=== PATIENT | male | born 1980 ===

== ENCOUNTER 2018-04-01 08:26 | Inpatient (IN) | payer OTHER ==
[2018-04-01 08:33] VITALS: BMI 27.1
[2018-04-01] MEDS ORDERED: Sodium Chloride 0.9% 1,000 ML IV STA (08:56)
[2018-04-01 09:29] LABS: BASO # 0.1 K/uL (0.0-0.2); BASO % 0.8 % (0.0-2.0); EOS # 0.2 K/uL (0.0-0.7); EOS % 2.3 % (0.0-4.0); HEMOGLOBIN 14.7 g/dL (12.0-18.0); LYMPH # 2.3 K/uL (1.0-4.3); LYMPH % 27.3 % (20.0-40.0); MEAN CELL VOLUME 87.6 fl (80.0-94.0); MEAN CORPUSCULAR HEMOGLOBIN 29.9 pg (27.0-31.0); MEAN CORPUSCULAR HGB CONC 34.1 g/dL (33.0-37.0); MEAN PLATELET VOLUME 8.5 fl (7.2-11.7); MONO # 0.5 K/uL (0.0-0.8); MONO % 5.7 % (0.0-10.0); NEUT # 5.4 K/uL (1.8-7.0); NEUT % 63.9 % (50.0-75.0); NRBC % 0.1 % (0.0-0.0); RBC 4.93 Mil/uL (4.40-5.90); RED CELL DISTRIBUTION WIDTH 13.6 % (11.5-14.5); WHITE BLOOD COUNT 8.4 K/uL (4.8-10.8)
[2018-04-01 09:41] LABS: ALB/GLOB RATIO 1.3 (1.0-2.1); ALBUMIN 4.5 g/dL (3.5-5.0); ALT/SGPT 99 U/L (21-72); AST/SGOT 55 U/L (17-59); BLOOD UREA NITROGEN 19 mg/dl (9-20); CALCIUM 9.5 mg/dL (8.4-10.2); GFR NON-AFRICAN AMERICAN > 60; LIPASE 106 U/L (23-300)
--- NOTE | 2018-04-01 09:51 | ED PDOC ---
HPI: Abdomen Time Seen by Provider: 04/01/18 08:50 Chief Complaint (Nursing): Abdominal Pain Chief Complaint (Provider): abdominal pain History Per: Patient History/Exam Limitations: no limitations Onset/Duration Of Symptoms: Days (x3), Worse Since (today) Current Symptoms Are (Timing): Still Present Associated Symptoms: Nausea, Vomiting. denies: Fever, Chills, Diarrhea Additional Complaint(s): New Gaitan is a 37 year old male, with no significant past medical history, who presents to the emergency department complaining of an intermittent abdominal pain onset for x3 days but worst today. Patient states symptoms are associated with x1 vomiting episode and nausea. Patient was seen by PMD yesterday and was prescribed Omeprazole with no relief. Patient reports similar symptoms in the past. He denies any fever, chills, diarrhea or constipation. No further medical complaints. PMD: Yesica Romero Past Medical History Reviewed: Historical Data, Nursing Documentation, Vital Signs Vital Signs: Last Vital Signs Temp 97.5 F L 04/01/18 08:29 Pulse 56 L 04/01/18 08:29 Resp 22 04/01/18 08:29 BP 139/78 04/01/18 08:29 Pulse Ox 100 04/01/18 08:29 - Medical History PMH: No Chronic Diseases - Surgical History Surgical History: No Surg Hx - Family History Family History: States: Unknown Family Hx - Allergies Allergies/Adverse Reactions: Allergies Allergy/AdvReac Type Severity Reaction Status Date / Time No Known Allergies Allergy Verified 04/01/18 08:55 Review of Systems ROS Statement: Except As Marked, All Systems Reviewed And Found Negative Constitutional: Negative for: Fever, Chills Gastrointestinal: Positive for: Nausea, Vomiting, Abdominal Pain. Negative for: Diarrhea, Constipation Physical Exam - Reviewed Nursing Documentation Reviewed: Yes Vital Signs Reviewed: Yes - Physical Exam Appears: Positive for: No Acute Distress Head Exam: Positive for: ATRAUMATIC, NORMOCEPHALIC Skin: Positive for: Normal Color, Warm, Dry Eye Exam: Positive for: Normal appearance, EOMI, PERRL Neck: Positive for: Painless ROM Cardiovascular/Chest: Positive for: Regular Rate, Rhythm. Negative for: Murmur Respiratory: Positive for: Normal Breath Sounds. Negative for: Respiratory Distress Gastrointestinal/Abdominal: Positive for: Tenderness (epigastric). Negative for: Guarding, Rebound Back: Positive for: Normal Inspection. Negative for: L CVA Tenderness, R CVA Tenderness, Vertebral Tenderness Extremity: Positive for: Normal ROM (upper and lower extremities). Negative for: Deformity, Swelling Neurologic/Psych: Positive for: Alert, Oriented, Gait (steady) - Laboratory Results Result Diagrams: 04/01/18 09:18 04/01/18 09:18 - ECG O2 Sat by Pulse Oximetry: 100 (RA) Pulse Ox Interpretation: Normal Medical Decision Making Medical Decision Making: Time: 08:50 Initial Impression: abdominal pain Initial Plan: --Urine dipstick --Pepcid 20 mg IVP --Sodium Chloride 1,000 ml IV 1,000 mls/hr --Zofran Inj 4 mg IV --Abdomen Limited (GB Included) [US] --Reevaluation Accession No. : [id number] Patient Name / ID : JAIRO BROWN / [id number] Exam Date : 04/01/2018 10:37:19 ( Approved ) Study Comment : Sex / Age : M / 37Y Creator : Martin Liu MD Dictator : Martin Liu MD Trimming Caser : Paste Mixer Liquid : Martin Liu MD Approver2 : Report Date : 04/01/2018 12:02:09 My Comment : Date of service: 04/01/2018 HISTORY: Epigastric pain, vomiting COMPARISON: None. TECHNIQUE: Sonographic evaluation of the right upper quadrant of the abdomen. FINDINGS: LIVER: Measures 17.4 cm in length. Normal echogenicity of the liver parenchyma. No mass. No intrahepatic bile duct dilatation. Normal hepatopetal portal venous flow noted GALLBLADDER: Extensive cholelithiasis. Mild mural thickening up to 4 mm. Negative sonographic Sherman sign. Equivocal findings for cholecystitis. COMMON BILE DUCT: Measures 5 mm. No stones. No dilatation. PANCREAS: Unremarkable. No pancreatic ductal dilatation. RIGHT KIDNEY: Measures 10.6 cm in length. Normal echogenicity. No calculus, mass, or hydronephrosis. AORTA: No aneurysmal dilatation. IVC: Unremarkable. OTHER FINDINGS: None . IMPRESSION: Cholelithiasis with mild mural thickening and negative sonographic Sherman sign. Equivocal findings for cholecystitis. No pericholecystic fluid. No evidence of acute pancreatitis. No additional abnormality. 13:05 Case discussed with vice president of development. Scribe Attestation: Documented by Winston Lugo, acting as a scribe for Melba Razo MD. Provider Scribe Attestation: All medical record entries made by the Scribe were at my direction and personally dictated by me. I have reviewed the chart and agree that the record accurately reflects my personal performance of the history, physical exam, medical decision making, and the department course for this patient. I have also personally directed, reviewed, and agree with the discharge instructions and disposition. Disposition - Disposition Forms: Antavo ([place]itan)
[2018-04-01] MEDS ORDERED: Alum-Mag Hydrox-Simethicone Susp (30 mL) PO STA (11:18)
[2018-04-01] MEDS ORDERED: Atrop/Hyos/Scop/PhenoB Elixir PO STA (11:19)
[2018-04-01] MEDS ORDERED: Alum-Mag Hydrox-Simethicone Susp (30 mL) ONE (11:31)
--- NOTE | 2018-04-01 12:04 | US ---
Date of service: 04/01/2018 HISTORY: Epigastric pain, vomiting COMPARISON: None. TECHNIQUE: Sonographic evaluation of the right upper quadrant of the abdomen. FINDINGS: LIVER: Measures 17.4 cm in length. Normal echogenicity of the liver parenchyma. No mass. No intrahepatic bile duct dilatation. Normal hepatopetal portal venous flow noted GALLBLADDER: Extensive cholelithiasis. Mild mural thickening up to 4 mm. Negative sonographic Sherman sign. Equivocal findings for cholecystitis. COMMON BILE DUCT: Measures 5 mm. No stones. No dilatation. PANCREAS: Unremarkable. No pancreatic ductal dilatation. RIGHT KIDNEY: Measures 10.6 cm in length. Normal echogenicity. No calculus, mass, or hydronephrosis. AORTA: No aneurysmal dilatation. IVC: Unremarkable. OTHER FINDINGS: None . IMPRESSION: Cholelithiasis with mild mural thickening and negative sonographic Sherman sign. Equivocal findings for cholecystitis. No pericholecystic fluid. No evidence of acute pancreatitis. No additional abnormality.
--- NOTE | 2018-04-01 13:52 | CP.PCM.HP ---
<Mak Machado - Last Filed: 04/01/18 14:46> History of Present Illness - History of Present Illness History of Present Illness: General Surgery H&P note for Dr. Solano Reason for consult: Abdominal pain, nausea/vomiting 37 M with no significant PMH presents to [facility] for complaint of epigastric abdominal pain. Patient was seen and evaluated in the ED. Patient states that pain began 3 days ago while at home. He reports sudden onset a couple hours after a meal. Patient states that this is the third time he has experienced pain like this. The first time was approximately 5 years ago and the second was 2 years ago. Both times were associated with meals. Patient also reports 2 episodes of nausea/vomiting this morning. He rates pain as moderate to severe. He describes pain as constant and sharp located in the epigastric region with radiaiton to RUQ. Eating/drinking exacerbates symptoms while nothing alleviates it. Denies fever/chills, chest pain, SOB, palpitations, diarrhea, constipation, urinary symptoms. 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 Present on Admission - Present on Admission Any Indicators Present on Admission: No Review of Systems - Review of Systems All systems: reviewed and no additional remarkable complaints except (as per HPI) Past Patient History - Past Social History Smoking Status: Light Smoker < 10 Cigarettes Daily - PSYCHIATRIC Hx Substance Use: No - SURGICAL HISTORY Hx Surgeries: No - ANESTHESIA Hx Anesthesia: No Meds Allergies/Adverse Reactions: Allergies Allergy/AdvReac Type Severity Reaction Status Date / Time No Known Allergies Allergy Verified 04/01/18 08:55 Physical Exam - Constitutional Appears: Well, Non-toxic, No Acute Distress - Head Exam Head Exam: ATRAUMATIC, NORMOCEPHALIC - Eye Exam Eye Exam: EOMI, Normal appearance Pupil Exam: PERRL - ENT Exam ENT Exam: Mucous Membranes Moist - Respiratory Exam Respiratory Exam: NORMAL BREATHING PATTERN - Cardiovascular Exam Cardiovascular Exam: REGULAR RHYTHM - GI/Abdominal Exam GI & Abdominal Exam: Soft, Tenderness (RUQ/Epigastric). absent: Distended, Firm, Guarding, Rebound, Rigid - Extremities Exam Extremities exam: Positive for: normal capillary refill, pedal pulses present. Negative for: calf tenderness - Back Exam Back exam: absent: CVA tenderness (L), CVA tenderness (R) - Neurological Exam Neurological exam: Alert, CN II-XII Intact, Oriented x3 - Psychiatric Exam Psychiatric exam: Normal Affect, Normal Mood - Skin Skin Exam: Dry, Intact, Normal Color, Warm Results - Vital Signs Recent Vital Signs: Last Vital Signs Temp 97.5 F L 04/01/18 08:29 Pulse 56 L 04/01/18 08:29 Resp 22 04/01/18 08:29 BP 139/78 04/01/18 08:29 Pulse Ox 100 04/01/18 13:14 - Labs Result Diagrams: 04/01/18 09:18 04/01/18 09:18 Labs: Laboratory Results - last 24 hr 04/01/18 04/01/18 09:18 09:18 WBC 8.4 RBC 4.93 Hgb 14.7 Hct 43.2 MCV 87.6 MCH 29.9 MCHC 34.1 RDW 13.6 Plt Count 257 MPV 8.5 Neut % (Auto) 63.9 Lymph % (Auto) 27.3 [place] % (Auto) 5.7 Eos % (Auto) 2.3 Baso % (Auto) 0.8 Neut # (Auto) 5.4 Lymph # (Auto) 2.3 [place] # (Auto) 0.5 Eos # (Auto) 0.2 Baso # (Auto) 0.1 Sodium 142 Potassium 4.3 Chloride 106 Carbon Dioxide 27 Anion Gap 13 BUN 19 Creatinine 0.9 Est GFR ( Amer) > 60 Est GFR (Non-Af Amer) > 60 Random Glucose 113 H Calcium 9.5 Total Bilirubin 0.5 AST 55 ALT 99 H Alkaline Phosphatase 62 Total Protein 7.8 Albumin 4.5 Globulin 3.4 Albumin/Globulin Ratio 1.3 Lipase 106 Assessment & Plan - Assessment and Plan (Free Text) Assessment: 37 M with abdominal pain and cholelithiasis Plan: -NPO -IV fluids -IV antibiotics -Analgesics/Anti-emetics PRN -I's & O's -Plan for OR Thursday morning -Discussed with Dr. Russ Machado PGY2 - Date & Time Date: 04/01/18 Time: 13:00 <Fatuma Solano - Last Filed: 04/02/18 00:04> Results - Vital Signs Recent Vital Signs: Last Vital Signs Temp 97.9 F 04/01/18 16:05 Pulse 47 L 04/01/18 18:30 Resp 18 04/01/18 16:05 BP 138/80 04/01/18 16:05 Pulse Ox 99 04/01/18 16:05 - Labs Result Diagrams: 04/01/18 09:18 04/01/18 09:18 Labs: Laboratory Results - last 24 hr 04/01/18 04/01/18 09:18 09:18 WBC 8.4 RBC 4.93 Hgb 14.7 Hct 43.2 MCV 87.6 MCH 29.9 MCHC 34.1 RDW 13.6 Plt Count 257 MPV 8.5 Neut % (Auto) 63.9 Lymph % (Auto) 27.3 [place] % (Auto) 5.7 Eos % (Auto) 2.3 Baso % (Auto) 0.8 Neut # (Auto) 5.4 Lymph # (Auto) 2.3 [place] # (Auto) 0.5 Eos # (Auto) 0.2 Baso # (Auto) 0.1 Sodium 142 Potassium 4.3 Chloride 106 Carbon Dioxide 27 Anion Gap 13 BUN 19 Creatinine 0.9 Est GFR ( Amer) > 60 Est GFR (Non-Af Amer) > 60 Random Glucose 113 H Calcium 9.5 Total Bilirubin 0.5 AST 55 ALT 99 H Alkaline Phosphatase 62 Total Protein 7.8 Albumin 4.5 Globulin 3.4 Albumin/Globulin Ratio 1.3 Lipase 106 Assessment & Plan - Assessment and Plan (Free Text) Plan: I personally saw and examined the patient with the resident staff and agree with the above assessment and plan. I personally reviewed the available diagnostic images and imaging reports. US gallstones confirmed. Tenderness on exam. NPO, IVF. Zosyn. 37 Year old male with recurrent symptomatic cholelithiasis. I recommend he undergo a laparoscopic cholecystectomy. We discussed the risks and benefits of the operation including, but not limited to bleeding, infection, bowel injury, bile leak, bile duct injury, and VTE. All the patients questions were answered. He/she understands these risks and would like to proceed with the above. Informed consent was signed. Scheduled for Thursday am.
[2018-04-01] MEDS: Lactated Ringer's 1,000 ML IV SCH ×2 (16:09→23:27)
[2018-04-01] MEDS: Piperacillin/Tazobact 3.375 GM in Sodium Chloride 0.9% 100 ML IVPB SCH ×2 (16:09→21:45)
[2018-04-01] MEDS ORDERED: Pneumococcal 23-Valent Vaccine IM ONE (17:00)
[2018-04-01] MEDS ORDERED: Influenza Vaccine (5 YR UP)/PF 60 MCG/0.5 ML SYR IM ONE (17:00)
[2018-04-02] MEDS: Piperacillin/Tazobact 3.375 GM in Sodium Chloride 0.9% 100 ML IVPB SCH ×4 (03:35→23:02)
[2018-04-02 06:40] LABS: BASO % 0.2 % (0.0-2.0); EOS # 0.1 K/uL (0.0-0.7); EOS % 0.9 % (0.0-4.0); LYMPH % 16.8 % (20.0-40.0); MEAN CELL VOLUME 86.6 fl (80.0-94.0); MEAN CORPUSCULAR HEMOGLOBIN 29.6 pg (27.0-31.0); MEAN CORPUSCULAR HGB CONC 34.2 g/dL (33.0-37.0); MEAN PLATELET VOLUME 8.6 fl (7.2-11.7); MONO # 0.9 K/uL (0.0-0.8); MONO % 7.4 % (0.0-10.0); NEUT # 9.1 K/uL (1.8-7.0); NEUT % 74.7 % (50.0-75.0); NRBC % 0.1 % (0.0-0.0); RBC 5.07 Mil/uL (4.40-5.90); RED CELL DISTRIBUTION WIDTH 13.4 % (11.5-14.5); WHITE BLOOD COUNT 12.2 K/uL (4.8-10.8)
[2018-04-02 06:48] LABS: INR 1.2; PROTHROMBIN TIME 12.9 Seconds (9.8-13.1)
[2018-04-02 06:50] LABS: PARTIAL THROMBOPLASTIN TIME 33.9 Seconds (25.6-37.1)
[2018-04-02 07:06] LABS: ALB/GLOB RATIO 1.3 (1.0-2.1); ALBUMIN 4.2 g/dL (3.5-5.0); ALT/SGPT 97 U/L (21-72); AST/SGOT 67 U/L (17-59); BLOOD UREA NITROGEN 11 mg/dl (9-20); CALCIUM 9.1 mg/dL (8.4-10.2); GFR NON-AFRICAN AMERICAN > 60
--- NOTE | 2018-04-02 08:40 | CARD ---
APPROVED REPORT Date of service: 04/01/2018 EKG Measurement Heart [id number] <Conclusion> Sinus bradycardia Otherwise normal ECG
[2018-04-02] MEDS ORDERED: Propofol 10 mg/ml Inj (20 ML) ONE (10:37)
[2018-04-02] MEDS ORDERED: Midazolam 2 MG/2 ML VIAL ONE (10:37)
[2018-04-02] MEDS ORDERED: Succinylcholine 200 mg/10 ml Inj IV ONE (10:38)
[2018-04-02] MEDS ORDERED: Neostigmine 1:1000 (1 mg/ml) Inj ONE (10:38)
[2018-04-02] MEDS ORDERED: Lidocaine 1% 5ml Abboject ONE (10:38)
[2018-04-02] MEDS ORDERED: Lidocaine 4% (Laryng-O-Jet) Kit MM ONE (10:38)
[2018-04-02] MEDS ORDERED: Rocuronium 10 mg/ml (5 ml) ONE (10:38)
[2018-04-02] MEDS ORDERED: Lactated Ringer's 1,000 ML IV ONE (10:50)
[2018-04-02] MEDS ORDERED: Bupivacaine 0.25% Inj(30mL) INFIL ONE ×2 (11:13)
[2018-04-02] MEDS ORDERED: Lidocaine 2% Inj (20ml) INFIL ONE ×2 (11:13)
--- NOTE | 2018-04-02 12:52 | PCM.SURG1 ---
Surgeon's Initial Post Op Note - Surgeon's Notes Surgeon: Dr. Solano Chief Clerk: [place] PGY2 Type of Anesthesia: General Endo, Local Anesthesia Administered By: Dr. Mtz Pre-Operative Diagnosis: Acute cholecystitis Operative Findings: Acute cholecystitis Post-Operative Diagnosis: Acute cholecystitis Operation Performed: Laparoscopic Cholecystectomy Specimen/Specimens Removed: Gallblader with stones Estimated Blood Loss: EBL {In ML}: 25 Blood Products Given: N/A Drains Used: No Drains Post-Op Condition: Good Date of Surgery/Procedure: 04/02/18 Time of Surgery/Procedure: 12:52
[2018-04-02] MEDS ORDERED: Oxycodone/Acetaminophen 5/325 mg Tab PO PRN (12:53)
[2018-04-02] MEDS ORDERED: Lactated Ringer's 1,000 ML IV SCH (13:00)
[2018-04-02] MEDS: Lactated Ringer's 1,000 ML IV SCH (23:30)
[2018-04-03 00:09] VITALS: RESP 19
[2018-04-03] MEDS: Piperacillin/Tazobact 3.375 GM in Sodium Chloride 0.9% 100 ML IVPB SCH ×3 (05:16→09:27)
[2018-04-03] MEDS: Lactated Ringer's 1,000 ML IV SCH (06:00)
[2018-04-03 07:40] VITALS: BP 113/75; PULSE 65; TEMP 97.6; O2SAT 96
--- NOTE | 2018-04-03 09:29 | CP.PCM.DIS ---
Provider - Provider Date of Admission: 04/01/18 13:31 Attending physician: Fatuma Solano MD Consults: none Time Spent in preparation of Discharge (in minutes): 30 Hospital Course - Lab Results Lab Results: Most Recent Lab Values WBC 12.2 K/uL (4.8-10.8) H 04/02/18 06:05 RBC 5.07 Mil/uL (4.40-5.90) 04/02/18 06:05 Hgb 15.0 g/dL (12.0-18.0) 04/02/18 06:05 Hct 43.9 % (35.0-51.0) 04/02/18 06:05 MCV 86.6 fl (80.0-94.0) 04/02/18 06:05 MCH 29.6 pg (27.0-31.0) 04/02/18 06:05 MCHC 34.2 g/dL (33.0-37.0) 04/02/18 06:05 RDW 13.4 % (11.5-14.5) 04/02/18 06:05 Plt Count 264 K/uL (130-400) 04/02/18 06:05 MPV 8.6 fl (7.2-11.7) 04/02/18 06:05 Neut % (Auto) 74.7 % (50.0-75.0) 04/02/18 06:05 Lymph % (Auto) 16.8 % (20.0-40.0) L 04/02/18 06:05 [place] % (Auto) 7.4 % (0.0-10.0) 04/02/18 06:05 Eos % (Auto) 0.9 % (0.0-4.0) 04/02/18 06:05 Baso % (Auto) 0.2 % (0.0-2.0) 04/02/18 06:05 Neut # (Auto) 9.1 K/uL (1.8-7.0) H 04/02/18 06:05 Lymph # (Auto) 2.0 K/uL (1.0-4.3) 04/02/18 06:05 [place] # (Auto) 0.9 K/uL (0.0-0.8) H 04/02/18 06:05 Eos # (Auto) 0.1 K/uL (0.0-0.7) 04/02/18 06:05 Baso # (Auto) 0.0 K/uL (0.0-0.2) 04/02/18 06:05 PT 12.9 Seconds (9.8-13.1) 04/02/18 06:05 INR 1.2 04/02/18 06:05 APTT 33.9 Seconds (25.6-37.1) 04/02/18 06:05 Sodium 137 mmol/l (132-148) 04/02/18 06:05 Potassium 4.0 MMOL/L (3.6-5.0) 04/02/18 06:05 Chloride 102 mmol/L (98-107) 04/02/18 06:05 Carbon Dioxide 29 mmol/L (22-30) 04/02/18 06:05 Anion Gap 10 (10-20) 04/02/18 06:05 BUN 11 mg/dl (9-20) 04/02/18 06:05 Creatinine 0.9 mg/dl (0.8-1.5) 04/02/18 06:05 Est GFR ( Amer) > 60 04/02/18 06:05 Est GFR (Non-Af Amer) > 60 04/02/18 06:05 Random Glucose 109 mg/dL (75-110) 04/02/18 06:05 Calcium 9.1 mg/dL (8.4-10.2) 04/02/18 06:05 Total Bilirubin 1.7 mg/dl (0.2-1.3) H 04/02/18 06:05 AST 67 U/L (17-59) H D 04/02/18 06:05 ALT 97 U/L (21-72) H 04/02/18 06:05 Alkaline Phosphatase 55 U/L (38-126) 04/02/18 06:05 Total Protein 7.5 G/DL (6.3-8.2) 04/02/18 06:05 Albumin 4.2 g/dL (3.5-5.0) 04/02/18 06:05 Globulin 3.3 gm/dL (2.2-3.9) 04/02/18 06:05 Albumin/Globulin Ratio 1.3 (1.0-2.1) 04/02/18 06:05 Lipase 106 U/L (23-300) 04/01/18 09:18 - Hospital Course Hospital Course: 37yo M with no significant PMH presented to [facility] ED for complaint of epigastric abdominal pain radiating to the RUQ for 3 days associated with 2 episodes of N/V. Onset of pain was a couple hours after a meal. Patient stated that this was the third time he had experienced pain like this. The first time was approximately 5 years ago and the second was 2 years ago. Both times were associated with meals. Pt was tender in RUQ on physical exam. US showed extensive cholelithiasis, mild mural thickening up to 4mm, no pericholecystic fluid. On 04/02, he was taken to OR for laparoscopic cholecystectomy. On POD#1, he was tolerating diet, pain well controlled, ambulating, and requesting to go home. He was discharged home with prescriptions for Ultram, Ibuprofen, Colace and instructions to follow up with Dr. Solano in his office. Discharge Exam - Head Exam Head Exam: ATRAUMATIC, NORMOCEPHALIC - Eye Exam Eye Exam: EOMI, Normal appearance - Respiratory Exam Respiratory Exam: NORMAL BREATHING PATTERN. absent: Respiratory Distress - Cardiovascular Exam Cardiovascular Exam: +S1, +S2 - GI/Abdominal Exam GI & Abdominal Exam: Soft, Tenderness (mild joanna-incisional tenderness around laparoscopic incision sites). absent: Distended, Firm, Guarding, Rebound, Rigid Additional comments: Dermabond in place over laparoscopic incision sites - Neurological Exam Neurological exam: Alert, CN II-XII Intact, Oriented x3 - Psychiatric Exam Psychiatric exam: Normal Affect, Normal Mood - Skin Skin Exam: Dry, Normal Color, Warm Discharge Plan - Follow Up Plan Condition: GOOD Disposition: HOME/ ROUTINE Patient education suggested?: Yes Instructions: Cholecystectomy, Laparoscopic Surgery, Cholecystitis (DC), Cholecystitis (GEN) Additional Instructions: Prescription given for Tramadol, Ibuprofen, Colace Follow up with Dr. Solano in approximately 2 weeks, call to make appointment See DC instruction sheet for additional instructions Referrals: Fatuma Solano MD [Staff Provider] -
--- NOTE | 2018-04-03 18:19 | PCM.OP ---
Operative Report - Operative Report Date of Surgery/Procedure: 04/02/18 Time of Surgery/Procedure: 11:00 Surgeon: Fatuma Solano MD [employer] Supervisor: Mak Peacock DO (PGY2 resident) Anesthesia/Sedation: General endotracheal; 1% lidocaine + 0.25% Marcaine mix local anesthesia Pre-Operative Diagnosis: Acute calculus cholecystitis. Overweight. BMI 27 Post-Operative Diagnosis: Acute on chronic calculus cholecystitis. Overweight. BMI 27 Indication for Surgery: This is a 37-year-old male presented to ED with RUQ pain due to symptomatic cholelithiasis and acute cholecystitis on RUQ US, confirming stones and inflammation. Third attack and hospital visit in last 2 years. Details of HPI in clinical chart. Taken to the operating room for laparoscopic cholecystectomy. Patient understands the risks and benefits of the procedure as documented in the clinic chart but specifically risk of cystic duct leak and common bile duct injury, need for open surgery and has consented to the procedure. Operative Findings: Dilated, Fluid filled gallbladder with multple stones. Clips in place on cystic duct and cystic artery at end of case without evidence of bleeding or bile leak. Procedure/Operation Description: PROCEDURES PERFORMED: 1) Laparoscopic Cholecystectomy. DESCRIPTION OF PROCEDURE: The patient was given a preoperative dose of Zosyn 20 minutes before the incision. SCD boots were placed for DVT prophylaxis. An orogastric tube placed in order to empty the stomach after the induction of general anesthesia. Upper body warmer placed to maintain normothermia. Secure straps placed above and bleow the knees and footboard placed. Arms placed on arm boards out at 80 degress. All bony prominences were padded. No boswell catheter inserted as patient had just voided immediately prior to being brought to OR. The abdomen was prepped and draped in sterile fashion. A timeout was performed prior to incision. All skin incisions were made using an 11 blade scalpel after being pre-anesthetized with local anesthesia. In the infraaumbilical midline, a circumlinear incision was made. The umbilical raphe was identified and fascia was divided between clamps at its base entering the abdomen in an open fashion. A 11-mm trocar was inserted in the abdomen and the abdomen was insufflated to 15 mmHg pressure with CO2. A 30-degree viewing scope was then inserted and the abdomen was generally inspected and there was not found to be any additional signs of pathology. In the right upper quadrant, two 5-mm ports were placed after the under direct vision and in the subxiphoid midline, an 11-mm radially dilating port was placed in the similar fashion. . A large dilated gallbladder fundus was identified beneath the liver edge. A laparoscopic aspiration needle was inserted into the fundus and used to aspirate 30cc of bilious fluid for decompression and allow grasping and retraction. The fundus of the gallbladder was then retracted to the right upper quadrant and the neck of the gallbladder was visualized. There were omental adhesions to the gallbladder that were taken down with a cominbation of sharp dissection and hook cautery. The peritoneal attachments from the lateral portion of the gallbladder/cystic duct junction were gently dissected and divided to open up the [place]. The [place] was then dissected up onto the liver bed posterior to the gallbladder in order to ensure that this was the cystic duct and not tenting of the common bile duct. The peritoneal attachments on the medial portion of the gallbladder going up to the side of the liver were taken and distal third of galbbladder dissected off the cystic plate. The critical view was obtained. The cystic artery and duct were sequentially then doubly clipped and ligated and the clips were inspected. . Once this was completed, the gallbladder was dissected free from the liver bed using electro cautery and placed this in an endo catch bag. This was withdrawn through the umbilical port. The abdomen was reinspected. The clips were in good position on the cystic artery and duct stumps and the abdomen was generally irrigated and drained. The ports were then removed from the abdomen and the abdomen was desufflated with air. The umbilical port was closed with interrupted 0- Vicryl suture x3, skin incisions closed with 4-0 Vicryl sutures, and finally dermabond applied to skin. The patient tolerated the procedure well and was extubated and stable in recovery after the procedure. I was present throughout the entirety of the procedure. Sponge, needle and instrument counts were correct. Estimated Blood Loss: 25mL Complications: none Specimen: gallbladder Discharge & Condition: above
== END 2018-04-03 11:04 | disposition home or self-care (01) | DRG 494 ==
LOC: H.ER 08:26 → H.ERHOLD 13:31 → H.MEDSURG1 15:22
PROVIDERS: ADMIT Surgery; ATTEND Surgery
PROC: 0FT44ZZ Resection of Gallbladder, Percutaneous Endoscopic Approach (ICD-10-PCS; principal; 2018-04-03)
DX: K80.00 Calculus of gallbladder with acute cholecystitis without obstruction (principal); E66.3 Overweight; Z68.27 Body mass index [BMI] 27.0-27.9, adult